=== PATIENT | female | born 1985 | race African-American/Black ===

== ENCOUNTER 2019-12-27 17:40 | Emergency (ER) | payer SELFPAY ==
[~2019-12-27] VITALS: Ht 162.6 cm; Wt 82.0 kg
[2019-12-27 19:25] VITALS: BP 130/80
== END 2019-12-27 19:27 | disposition left against medical advice (07) ==
LOC: ER 17:40
DX: Z04.89 Encounter for examination and observation for other specified reasons (principal); Z87.19 Personal history of other diseases of the digestive system
CPT/HCPCS: 99283